=== PATIENT | male | born 1980 | race Caucasian/White ===

== ENCOUNTER → 2019-05-27 | Outpatient (CLI) | payer BC | END | disposition home or self-care (01) | LOC: RADMRIMAIN 12:45 | PROVIDERS: ATTEND Radiology Radiation Oncology | DX: Z53.9 Procedure and treatment not carried out, unspecified reason (principal) ==

== ENCOUNTER → 2019-05-27 | Outpatient (CLI) | payer BC ==
--- NOTE | 2019-05-27 13:30 | CT ---
EXAMINATION TYPE: CT brain wo con DATE OF EXAM: 05/27/2019 COMPARISON: Outside CT brain 05/08/2019, 04/21/2019 INDICATION: Follow up scan, prior surgery 1 month ago for tumor DLP: 1090.4 mGycm, Automated exposure control for dose reduction was used. CONTRAST: None CT of the brain is performed utilizing 3 mm thick sections through the posterior fossa and 3 mm thick sections through the remaining calvarium. Study is performed within 24 hours of arrival to the hosp [facility]. Graft findings: There is postsurgical change to the left frontal temporal region. There is ence phalomalacia and resection of the anterior left frontal lobe. Some encephalomalacia of the medial rig ht frontal lobe is present. No abnormal hyperdensity is present to suggest an acute intracranial hemorrhage. Previous hemorrhage in the frontal region is resolving. No recurrent or residual mass lesion is evident. No acute infarcts are evident. Ventricles and sulci are appropriate for the patient age. Because thickening is within the left frontal sinus and within scattered bilateral ethmoid air cells. Maxillary and sphenoid sinuses appear clear. Deviation is present. Mastoid air cells are clear. IMPRESSIONS: 1. Postsurgical resection of a left frontal lobe mass. Some residual white matter change within the medial right frontal lobe is evident. Prior hemorrhage is resolving. No recurrent or residual mass i s identified.
--- NOTE | 2019-05-27 18:23 | MR ---
EXAMINATION TYPE: MR brain wo/w con DATE OF EXAM: 05/27/2019 COMPARISON: CT brain 05/27/2029, MRI 04/24/2019 HISTORY: Brain tumor, glioblastoma left frontal lobe CONTRAST: Performed utilizing 7 mL intravenous Gadavist gadolinium contrast. TECHNIQUE: Multiplanar, multiecho imaging on a 3.0 Franci magnet is performed through the brain. Stud y is performed within 24 hours of arrival to the hospital. The craniovertebral junction is normal. The pituitary is normal. Diffusion-weighted imaging is performed. There is increased signal along the medial aspect of the le ft frontal region. This extends to the anterior corpus callosum. Posterior diffusion-weighted abnorma lities signal is present. More intermediate signal is through the corpus callosum on the right. On T2 and inversion recovery weighted sequences increased signal is through the corpus callosum best visualized in the inversion recovery weighted sequence. This appears heterogenous along the anterior corpus callosum. Some crossover from left to right is likely present into the posterior right frontal lobe. On postcontrast imaging extension of irregular enhancement from the frontal corpus callosum to nearly the posterior corpus callosum is evident. Series 703. Additionally, the peripheral ring enhancement from the patient's tumor in the posterior right frontal lobe is well demonstrated. Away from the tumor, the Ventricles and sulci are appropriate for the patient age. Additional suspicious areas of enhancement are not evident. There is some vasogenic edema in the supe rior left frontal lobe. Of the degree of effacement of the anterior horn left lateral ventricle appea rs diminished from the comparison. Midline shift is not evident at this time. IMPRESSIONS: 1. There is recurrent tumor at the resection margin which is invading the anterior corpus callosum, c rossing the midline and entering the right posterior frontal lobe. This area measures 3.8 x AP 3.0 cm transverse. This crosses the midline and has additional left posterior extension through the corpus callosum of approximately 4.2 cm. These findings appear new from the postsurgical comparison MRI April 24, 2019.
== END | disposition home or self-care (01) ==
LOC: RADCTMAIN 12:40
PROVIDERS: ATTEND Neurological Surgery
DX: R90.89 Other abnormal findings on diagnostic imaging of central nervous system (principal); Z98.890 Other specified postprocedural states
CPT/HCPCS: 70450; 70553; A9585

== ENCOUNTER → 2019-07-30 | Outpatient (CLI) | payer BC ==
--- NOTE | 2019-07-30 23:21 | MR ---
EXAMINATION TYPE: MR brain wo/w con DATE OF EXAM: 07/30/2019 COMPARISON: 05/27/2019 HISTORY: Follow up to tumor resection done April 2019 TECHNIQUE: Multiplanar, multisequence images of the brain and brainstem is performed without and with IV contras t, utilizing 7.5 mL intravenous Gadavist . FINDINGS: There is 4 x 4.5 cm area of encephalomalacia left frontal lobe. There is a 3 x 2.5 cm area of masslike density with some patchy nodular enhancement at the anterior aspect of the corpus callosu m in the midline. This is slightly more on the left side. There is slight effacement of the frontal h orn left lateral ventricle. Mass may be invading the ventricle. No other area of pathologic enhancement seen. IMPRESSION: Compared to previous exam there is decreased enhancement of the margins of the encephalom alacia left frontal lobe. There is midline mass at the anterior aspect of the corpus callosum at the interhemispheric fissure that shows slight decreased size and also decreased enhancement compared to old exam. There is also decrease in the enhancing area along the mid corpus callosum compared to old exam. I do not see evidence for progression of tumor compared to old exam.
== END | disposition home or self-care (01) ==
LOC: RADMRIMAIN 14:30
PROVIDERS: ATTEND Radiology Radiation Oncology
DX: G93.89 Other specified disorders of brain (principal)
CPT/HCPCS: 70553; A9585

== ENCOUNTER → 2019-09-24 | Outpatient (CLI) | payer BC ==
--- NOTE | 2019-09-24 16:28 | MR ---
EXAMINATION TYPE: MR brain wo/w con DATE OF EXAM: 09/24/2019 COMPARISON: 07/30/2019 HISTORY: Glioblastoma, F/U to tumor resection 04-23-19 CONTRAST: Performed utilizing 7.5 mL intravenous Gadavist gadolinium contrast. TECHNIQUE: Multiplanar, multiecho imaging on a 3.0 Franci magnet is performed through the brain. Stud y is performed within 24 hours of arrival to the hospital. The craniovertebral junction is normal. The pituitary is normal. Diffusion-weighted imaging is performed. There is increase of restricted flow on the diffusion-weigh jaki imaging along the anterior, medial, and posterior lateral borders the resection site. This extend s into the corpus callosum and some nodular appearance on the posterior periventricular region. There is some mild white matter change through the frontal regions bilaterally. These areas are hyperinten se on the inversion recovery weighted sequence. Following contrast enhancement is not readily apparen t. Remainder the brain is a normal appearance without discrete masses. Some mild periventricular white m atter changes present superiorly above the lateral ventricles. Ventricles and sulci away from the res ection site appear normal. Ventricles and sulci otherwise appear normal for the patient age. No suspicious enhancement away from the injection site is evident. IMPRESSIONS: 1. There is some stable diffusion signal in the bed of the resection site greatest at the level of th e corpus callosum on the left frontal region. Findings are stable from the comparison of 07/30/2019.
== END | disposition home or self-care (01) ==
LOC: RADMRIMAIN 14:12
PROVIDERS: ATTEND Internal Medicine Hematology & Oncology
DX: C71.9 Malignant neoplasm of brain, unspecified (principal)
CPT/HCPCS: 70553; A9585

== ENCOUNTER → 2019-11-15 | Outpatient (CLI) | payer BC ==
--- NOTE | 2019-11-15 13:15 | MR ---
EXAMINATION TYPE: MR brain wo/w con DATE OF EXAM: 11/15/2019 COMPARISON: 09/24/2019 and 05/27/2019 HISTORY: 39-year-old male Malignant neoplasm of frontal lobe, glioblastoma. TECHNIQUE: Multiplanar, multisequence images of the brain and brainstem were acquired before and aft er administration of 7.5 mL IV Gadavist. Diffusion weighted imaging is performed. FINDINGS: Redemonstrated 5.0 cm left frontal resection cavity with resection changes extending into the genu an d anterior body of the corpus callosum and also into the anterior right paramedian frontal lobe. There is persistent nodular restricted diffusion along the posterior and right posterolateral resecti on margin measuring 1.8 and 1.0 cm, respectively. This is decreased in size from 2.1 and 1.1 cm, prev iously. Some persistent irregular thickening along the right lateral half of the resection margin continues t o show corresponding restricted diffusion but no enhancement. Some stable minimal 6 mm nodular enhancement along the posterior aspect of the resection margin and s ome was the enhancement extending into the medial aspect of the right frontal lobe. Similar surrounding increased T2/FLAIR weighted signal within the anterior aspect of the left frontal lobe, extending across the midline into the medial aspect of the anterior right frontal lobe and adj acent to the body of the corpus callosum. Dominant right vertebral artery. No additional abnormal enhancing intracranial lesions are identified . The venous sinuses are patent. Persistent complete opacification left frontal sinus and moderate mucosal thickening ethmoid air cell s. Leftward nasal septal deviation. Additional small mucosal retention cyst within the floor of the l eft maxillary sinus. No hydrocephalus, midline shift, or extra-axial fluid collection. IMPRESSION: 1. Redemonstrated large, 5.0 cm, anterior left frontal lobe resection cavity extending to involve the genu and anterior body of the corpus callosum and also extending slightly into the medial aspect of the anterior right frontal lobe. 2. Two, nodular nonenhancing lesions posteriorly and right posterolaterally measuring 1.8 and 1.0 cm have decreased in size (2.1 and 1.1 cm, previously) and continue to show restricted diffusion, possib le surgical or hemorrhagic debris. 3. Similar irregular restricted diffusion along the right lateral half of the resection cavity but wi thout abnormal enhancement. 4. Stable 6 mm nodular enhancement along the posterior aspect of the resection margin and some stable wispy enhancement extending into the medial aspect of the right frontal lobe. 5. No new or progressive enhancement. Stable surrounding bright T2/FLAIR signal change.
== END | disposition home or self-care (01) ==
LOC: RADMRIMAIN 11:09
PROVIDERS: ATTEND Radiology Radiation Oncology
DX: G93.89 Other specified disorders of brain (principal); C71.1 Malignant neoplasm of frontal lobe; Z87.891 Personal history of nicotine dependence; Z98.890 Other specified postprocedural states
CPT/HCPCS: 70553; A9585

== ENCOUNTER → 2020-01-22 | Outpatient (CLI) | payer BC ==
--- NOTE | 2020-01-22 15:20 | MR ---
EXAMINATION TYPE: MR brain wo/w con DATE OF EXAM: 01/22/2020 COMPARISON: 11/15/2019, 11/15/2019, 09/24/2019, 05/27/2019, CT scan 05/27/2019 HISTORY: glioblastoma frontal lobe, f/u TECHNIQUE: Multiplanar, multisequence images of the brain and brainstem is performed without and with IV contras t, utilizing 7.5 mL intravenous Gadavist . FINDINGS: There is nonspecific white matter changes most likely on the basis of remote white matter ischemia or post therapeutic change. Findings are similar stable. Craniocervical junction maintained. Sella turcica has a normal appearance. Redemonstrated 5.0 cm left frontal resection cavity with resection changes extending into the genu and anterior body of the cor pus callosum and also into the anterior right paramedian frontal lobe. There is persistent nodular restricted diffusion along the posterior and right posterolateral resecti on margin measuring 1.8 and 1.0 cm, respectively. This is decreased in size from 2.1 and 1.1 cm, prev iously. There is stable minimal 6 mm nodular enhancement along the posterior aspect of the resection margin a nd some was the enhancement extending into the medial aspect of the right frontal lobe. Similar surro unding increased T2/FLAIR weighted signal within the anterior aspect of the left frontal lobe, extend ing across the midline into the medial aspect of the anterior right frontal lobe and adjacent to the body of the corpus callosum. Changes of chronic sinusitis noted. Nasal septal deviation noted. No midline shift. There also is sta ble asymmetric dural based enhancement along the left frontal and parietal lobes with a maximal thick ness along the frontal lobe measuring 6 mm stable from prior exam. This could be postsurgical. Stable dating back to multiple prior exams. IMPRESSION: 1. Stable large 5 cm anterior left frontal lobe resection cavity extending to the corpus callosum. 2. Nodular nonenhancing lesions posteriorly and posterior laterally measuring 1.8 and 1 cm are stable . They remain high in signal on diffusion suggestive of possible surgical or hemorrhagic debris. They demonstrate a stable amount of mass effect along the upper margin of the frontal horn on the left. 3. Stable abnormal diffusion signal along the right lateral half of the resection cavity unchanged fr om the prior exam without evidence of abnormal enhancement. 4. Stable 6 mm nodular enhancement along the posterior aspect of the resection margin. 5. Stable left frontal and parietal dural-based enhancement favored over extra-axial fluid collection with a maximal thickness of 6 mm unchanged from previous exam and reduced in thickness from the exam of 05/27/2019 weren't measured 7.1 mm.
== END | disposition home or self-care (01) ==
LOC: RADMRIMAIN 13:45
PROVIDERS: ATTEND Psychiatry & Neurology Neurology
DX: G93.89 Other specified disorders of brain (principal)
CPT/HCPCS: 70553; A9585

== ENCOUNTER → 2020-03-25 | Outpatient (CLI) | payer BC ==
--- NOTE | 2020-03-25 13:00 | MR ---
EXAMINATION TYPE: MR brain wo/w con DATE OF EXAM: 03/25/2020 COMPARISON: 01/22/2020 HISTORY: Glioblastoma, Follow up Study, Tumor removed in 2019 CONTRAST: Performed utilizing 7.5 mL intravenous Gadavist gadolinium contrast. TECHNIQUE: Multiplanar, multiecho imaging on a 3.0 Franci magnet is performed through the brain. Stud y is performed within 24 hours of arrival to the hospital. The craniovertebral junction is normal. The pituitary is normal. Diffusion-weighted imaging is performed. There is a tiny focus of enhancement along the posterior left frontal lobe resection margin. An addit ional focus is within the solid area extending into the anterior left lateral ventricle. Series 602 i mage 21. A small amount of enhancement appears to be within the residual anterior corpus callosum. Se angelo 602 images 19-20. These areas were present on the comparison study of 01/22/2020. No enlargement of the area of enhancement is evident. No increasing masslike areas evident at these levels. This cou ld be related to some postsurgical change. There is periventricular white matter changes. This is greater in the frontal lobes in greatest in th e superior left frontal lobe. White matter ischemic changes, radiation therapy changes are within the differential and appears stable over the interval. There is opacification of the frontal sinus on the left some scattered mucosal thickening within ethm oid air cells. Hyperintensity within the postsurgical margins in the soft tissue density extending into the left lat eral ventricle on diffusion-weighted imaging is stable from comparison. This currently is measured at 1.7 cm, prior measurement 1.8 cm. The more right medial diffusion signal measures 1.1 cm, prior briana urement 1.1 cm. No increasing abnormal signal is evident Remainder the brain appears unremarkable. Ventricles and sulci are appropriate for the patient age. IMPRESSIONS: 1. Stable appearance of the right peripheral frontal lobe resection. Diffusion increased signal and s mall areas of enhancement previously described are stable in appearance and size. No enlarging or new suspicious changes evident.
== END | disposition home or self-care (01) ==
LOC: RADMRIMAIN 11:15
PROVIDERS: ATTEND Internal Medicine Hematology & Oncology
DX: C71.9 Malignant neoplasm of brain, unspecified (principal)
CPT/HCPCS: 70553; A9585

== ENCOUNTER → 2020-06-26 | Outpatient (CLI) | payer BC ==
--- NOTE | 2020-06-27 04:16 | MR ---
EXAMINATION TYPE: MR brain wo/w con DATE OF EXAM: 06/26/2020 COMPARISON: 03/25/2020 HISTORY: F/U resection malignant neoplasm frontal lobe CONTRAST: Standard multiplanar, multisequence MRI departmental protocol utilizing 7 mL intravenous Gadavist sherita olinium contrast. There is left frontal craniotomy defect. There is 5.5 x 3.5 cm area of mixed signal in the left front al lobe related to encephalomalacia. There is some surrounding white matter edema. Encephalomalacia e xtends to the frontal horn left lateral ventricle. There is no mass effect. There is no midline shift . There is 1.6 cm irregular mass adjacent to the frontal horn of the left lateral ventricle which is nonenhancing. This area appears stable compared to the previous MR scan. This could BE area of residu al tumor. There is normal contrast opacification of the venous sinuses. There is mucosal thickening in the frontal and anterior ethmoid sinuses unchanged. IMPRESSION: Postsurgical changes with large area of encephalomalacia in the left frontal lobe lopez and white milly er adjacent to the midline. Nonenhancing irregular nodular area at the posterior aspect of the surger y site could be some residual tumor that appears stable compared to previous exam. No evidence of any tumor recurrence or new abnormality compared to old exam. Surgery site overall is fairly stable comp ared to older exam of 09/24/2019.
== END | disposition home or self-care (01) ==
LOC: RADMRIMAIN 17:44
PROVIDERS: ATTEND Radiology Radiation Oncology
DX: G93.89 Other specified disorders of brain (principal); Z98.890 Other specified postprocedural states; C71.1 Malignant neoplasm of frontal lobe; Z92.3 Personal history of irradiation; Z87.891 Personal history of nicotine dependence
CPT/HCPCS: 70553; A9585

== ENCOUNTER → 2020-09-29 | Outpatient (CLI) | payer BC ==
--- NOTE | 2020-09-29 09:47 | MR ---
EXAMINATION TYPE: MR brain wo/w con DATE OF EXAM: 09/29/2020 COMPARISON: 07/06/2020 HISTORY: Malignant neoplasm frontal lobe TECHNIQUE: Multiplanar, multisequence images of the brain and brainstem is performed without and with IV contras t, utilizing 7.5 mL intravenous Gadavist . FINDINGS: There is left frontal craniotomy defect. There is 5.5 x 3.5 cm area of signal in the left f rontal lobe related to encephalomalacia. There is some surrounding white matter edema. Encephalomalac ia extends to the frontal horn left lateral ventricle. There is no mass effect. There is no midline s hift. There is 1.6 cm irregular mass adjacent to the frontal horn of the left lateral ventricle which is nonenhancing. This is high and diffusion imaging and is similar to prior exams. Therefore, residu al neoplasm in the differential diagnosis. Ischemic change felt less likely given is been present sin ce 11/15/2000 correlate clinically This area appears stable compared to the previous MR scan. This coul d BE area of residual tumor. Midline structures demonstrate normal morphology. The craniocervical junction appears within normal limits. Post contrast images demonstrate no abnormal enhancement. The dural venous sinuses appear pa tent. Changes of chronic sinusitis noted. Globes are symmetric.. IMPRESSION: 1. Stable postsurgical changes with an area of suspected encephalomalacia change prior exam. Intermed iate signal along the anterior margin of the frontal horn on the left as previously noted stable with no enhancement. Due to the high signal in this region on diffusion imaging which is stable from mult iple prior exams residual neoplasm in the differential diagnosis. No new enhancing lesions. Findings are stable from prior exam.
== END | disposition home or self-care (01) ==
LOC: RADMRIMAIN 08:41
PROVIDERS: ATTEND Radiology Radiation Oncology
DX: R94.02 Abnormal brain scan (principal); C71.1 Malignant neoplasm of frontal lobe; Z98.890 Other specified postprocedural states; Z92.3 Personal history of irradiation; Z87.891 Personal history of nicotine dependence
CPT/HCPCS: 70553; A9585

== ENCOUNTER → 2020-12-23 | Outpatient (CLI) | payer BC ==
--- NOTE | 2020-12-23 17:08 | MR ---
EXAMINATION TYPE: MR brain wo/w con DATE OF EXAM: 12/23/2020 COMPARISON: 09/29/2020 and 06/26/2020 HISTORY: 40-year-old male with previous brain surgery, Hx glioblastoma TECHNIQUE: Multiplanar, multisequence images of the brain and brainstem were acquired before and aft er administration of 7.5 mL IV Gadavist. Diffusion weighted imaging is performed. FINDINGS: Redemonstrated resection cavity within the anterior left frontal lobe extending to involve the anteri or body of the corpus callosum. The cavity measures approximately 4.9 x 3.8 cm (versus 4.8 x 3.7 cm, previously) and is not significantly changed. Minimal thickened enhancement along the anterior and me dial resection margin shows no change. Redemonstrated nodular bright T2 and intermediate T1 signal material showing restricted diffusion at the posterior margin of the resection cavity contiguous with the frontal horn of the left lateral moo tricle measuring 1.6 x 1.4 cm (versus 1.8 x 1.5 cm, previously). Unchanged small 4 mm enhancing focus in this region. Smaller similar area within the frontal horn of the right lateral ventricle measures 8 mm versus 1 cm , previously. Tiny 3 mm enhancing nodular focus here is also unchanged. Suspect that the enhancing ar eas represent blood vessels. Prominent surrounding bright T2 signal white matter change throughout the left greater than right bif rontal lobes and to a lesser extent within the periventricular regions remains unchanged. No new enhancing lesions are identified. Dural venous sinuses are patent. No midline shift, hydrocephalus, or extra-axial fluid collection. No effacement of cerebral sulci or basal subarachnoid cisterns. Midline structures demonstrate normal morphology. The craniocervical junction is normal. Continued moderate to severe mucosal thickening throughout the ethmoid air cells and severe within th e left frontal and right sphenoid sinuses. Mastoid air cells well pneumatized. Globes appear intact. IMPRESSION: 1. Essentially stable 4.9 cm anterior left frontal lobe resection cavity with minimal thickened enhan cement along the anterior and medial margin. The surrounding bright T2 white matter change in the lef t greater than right frontal lobes is also stable. 2. 1.6 cm nodularity at the posterior margin of the resection cavity continues to show restricted dif fusion and is slightly smaller from 1.8 cm, previously. Given the lack of enhancement and decreasing size, consider hemorrhagic debris. Similar but smaller 8 mm area within the anterior right frontal ho rn has also decreased slightly, previously having measured 1 cm. Tiny foci of enhancement within thes e structures are also stable and likely represent small blood vessels. 3. No new enhancing lesions. 4. Continued moderate to severe ethmoid, left frontal, and right sphenoid sinus disease.
== END | disposition home or self-care (01) ==
LOC: RADMRIMAIN 10:33
PROVIDERS: ATTEND Internal Medicine Hematology & Oncology
DX: G93.89 Other specified disorders of brain (principal); R90.89 Other abnormal findings on diagnostic imaging of central nervous system; R90.82 White matter disease, unspecified; C71.9 Malignant neoplasm of brain, unspecified
CPT/HCPCS: 70553; A9585

== ENCOUNTER → 2021-02-18 | Outpatient (CLI) | payer BC ==
--- NOTE | 2021-02-18 14:04 | EEG ---
ELECTROENCEPHALOGRAM REPORT DATE OF SERVICE: 02/18/2021 PREAMBLE: This is a 41-year-old male with history of malignant neoplasm of the brain in 2019. He underwent removal followed by chemo and radiation. He has been having daily headaches. Patient had a seizure like activity. This study is performed to evaluate for any epileptiform activity. Patient is alert and oriented x4. EEG FINDINGS: This is a 21 channel routine EEG recording on patient utilizing 10/20 international system with referential and bipolar montages. Background consists of well developed, well regulated, moderate voltage activity in 9-10 hertz alpha, seen better in the right hemispheric region, posterior dominant. There is amplitude asymmetry, with relatively higher amplitude activity involving the left frontal parietal region, consistent with a breach rhythm due to craniotomy defect. Photic driving response was seen with some flash frequencies. Different stages of sleep were not seen. No focal or generalized epileptiform activity was seen. IMPRESSION: This is a mildly abnormal EEG due to presence of amplitude asymmetry with relatively higher amplitude activity over the left frontal parietal region, consistent with breach rhythm due to craniotomy defect. Otherwise, the EEG was normal with no epileptiform activity. MMODL / IJN: [id number] / MTDD
== END ==
LOC: NEUROMAIN 08:00
PROVIDERS: ATTEND Internal Medicine Hematology & Oncology
DX: Z03.89 Encounter for observation for other suspected diseases and conditions ruled out (principal); C71.9 Malignant neoplasm of brain, unspecified
CPT/HCPCS: 95816

== ENCOUNTER → 2021-04-19 | Outpatient (CLI) | payer BC ==
--- NOTE | 2021-04-19 12:29 | MR ---
EXAMINATION TYPE: MR brain wo/w con DATE OF EXAM: 04/19/2021 COMPARISON: 12/23/2020 HISTORY: F/U post treatment for malignant neoplasm TECHNIQUE: Multiplanar, multisequence images of the brain and brainstem is performed without and with IV contras t, utilizing 7 mL intravenous Gadavist . FINDINGS: Redemonstrated resection cavity within the anterior left frontal lobe extending to involve the anterior body of the corpus callosum. The cavity measures approximately 4.9 x 3.8 cm (versus 4.9 x 3.8 cm, previously) and is not significantly changed. Minimal thickened enhancement along the anter ior and medial resection margin shows no change. Redemonstrated nodular bright T2 and intermediate T1 signal material showing restricted diffusion at the posterior margin of the resection cavity contiguous with the frontal horn of the left lateral moo tricle measuring 1.6 x 1.4 cm in stable). Unchanged small 4 mm enhancing focus in this region. Prominent surrounding bright T2 signal white matter change throughout the left greater than right bif rontal lobes and to a lesser extent within the periventricular regions remains unchanged. No new enhancing lesions are identified. Dural venous sinuses are patent. No midline shift, hydroceph alus, or extra-axial fluid collection. No effacement of cerebral sulci or basal subarachnoid cisterns . Midline structures demonstrate normal morphology. The craniocervical junction is normal. Continued moderate to severe mucosal thickening throughout the ethmoid air cells and severe within the left fro ntal and right sphenoid sinuses. Mastoid air cells well pneumatized. Globes appear intact. IMPRESSION: 1. Stable anterior left frontal resection cavity with minimal enhancement unchanged from prior exam. 2. Previously noted nodular areas of enhancement are stable. 3. No new areas of enhancement.
== END | disposition home or self-care (01) ==
LOC: RADMRIMAIN 10:30
PROVIDERS: ATTEND Radiology Radiation Oncology
DX: Z08 Encounter for follow-up examination after completed treatment for malignant neoplasm (principal); C71.1 Malignant neoplasm of frontal lobe; Z85.841 Personal history of malignant neoplasm of brain; Z87.891 Personal history of nicotine dependence; Z92.3 Personal history of irradiation
CPT/HCPCS: 70553; A9585

== ENCOUNTER → 2021-08-11 | Outpatient (CLI) | payer BC ==
--- NOTE | 2021-08-11 13:25 | MR ---
EXAMINATION TYPE: MR brain wo/w con DATE OF EXAM: 08/11/2021 COMPARISON: HISTORY: Malignant neoplasm of brain, post radiation TECHNIQUE: Multiplanar, multisequence images of the brain and brainstem is performed without and with IV contras t, utilizing 8 mL intravenous Gadavist . FINDINGS: Exam is stable. Postoperative changes, posttreatment changes, encephalomalacia and gliosis, areas of restricted diffusion and nodular enhancement showed similar appearance. Midline structures demonstrate stable morphology. The craniocervical junction appears within normal limits. Sinus disease is present in the frontal sinuses, ethmoid air cells, sphenoid sinus. IMPRESSION: There is no significant interval change. Stable findings.
== END | disposition home or self-care (01) ==
LOC: RADMRIMAIN 09:41
PROVIDERS: ATTEND Radiology Radiation Oncology
DX: Z08 Encounter for follow-up examination after completed treatment for malignant neoplasm (principal)
CPT/HCPCS: 70553; A9585

== ENCOUNTER → 2022-02-03 | Outpatient (CLI) | payer BC ==
--- NOTE | 2022-02-04 05:40 | MR ---
EXAMINATION TYPE: MR brain wo/w con DATE OF EXAM: 02/03/2022 COMPARISON: 08/11/2021 HISTORY: malignant neoplasm frontal lobe CONTRAST: Standard multiplanar, multisequence MRI departmental protocol images were obtained without contrast a nd with 9 mL intravenous Gadavist gadolinium contrast. There is rounded 5.3 x 3.8 cm area of fluid signal in the left frontal lobe involving lopez and white matter and consistent with encephalomalacia. The diffusion images show some small areas of increased signal in the white matter adjacent to the frontal horn of the left and right lateral ventricle. This is more on the left side. This is also present on previous exam and not changed. Contrast images karin w no definite pathologic enhancement. There is some enhancement of the anterior cerebral falx in a li near distribution and stable compared to old exam. There is thinning of the anterior and midcorpus ca llosum. Sella turcica is intact. Brainstem is intact. There is no evidence of orbital mass. Skull bas e appears intact. IMPRESSION: Large area of encephalomalacia in the left frontal lobe appears stable compared to old exam and consi stent with postsurgical changes. No sign of recurrent tumor.
== END | disposition home or self-care (01) ==
LOC: RADMRIMAIN 10:25
PROVIDERS: ATTEND Radiology Radiation Oncology
DX: Z08 Encounter for follow-up examination after completed treatment for malignant neoplasm (principal); Z85.841 Personal history of malignant neoplasm of brain; Z92.3 Personal history of irradiation; Z98.890 Other specified postprocedural states; Z87.891 Personal history of nicotine dependence
CPT/HCPCS: 70553; A9585

== ENCOUNTER → 2022-08-17 | Outpatient (CLI) | payer BC ==
--- NOTE | 2022-08-17 14:39 | MR ---
EXAMINATION TYPE: MR brain wo/w con DATE OF EXAM: 08/17/2022 COMPARISON: Multiple priors most recent 02/03/2022. HISTORY: MALIGNANT NEOPLASM OF FRONTAL LOBE TECHNIQUE: Multiplanar, multisequence images of the brain and brainstem is performed without and with IV contras t, utilizing 9 mL intravenous Gadavist . FINDINGS: Redemonstration of left frontal lobe encephalomalacia from prior intervention. There is ext ensive frontal lobe white matter changes as seen on prior imaging. There is similar curvilinear area adjacent to the left lateral ventricle and more medial right lateral ventricle of restricted diffusio n which is similar to prior. Postcontrast imaging does not demonstrate evidence of recurrence. Diffus ion weighted images demonstrate no evidence new of a recent infarct or other diffusion abnormality. M ild ventricular system dilation similar prior. Brain volume is stable. Midline structures demonstrate normal morphology. The craniocervical junction appears within normal limits. Post contrast images demonstrate no abnormal enhancement. The dural venous sinuses appear patent. The visualized sinuses a re clear and the globes are intact. IMPRESSION: Stable exam without evidence for recurrence. 1. Similar encephalomalacia.
== END | disposition home or self-care (01) ==
LOC: RADMRIMAIN 11:00
PROVIDERS: ATTEND Radiology Radiation Oncology
DX: G93.89 Other specified disorders of brain (principal)
CPT/HCPCS: 70553; A9585

== ENCOUNTER → 2023-02-15 | Outpatient (CLI) | payer BC ==
--- NOTE | 2023-02-16 06:08 | MR ---
EXAMINATION TYPE: MR brain wo/w con DATE OF EXAM: 02/15/2023 COMPARISON: Primary MRI brain August 17, 2022 HISTORY: 6 MO CHECK-UP ON BRAIN CA TECHNIQUE: Multiplanar, multisequence images of the brain and brainstem is performed without and with IV contras t, utilizing 8 mL intravenous Gadavist . FINDINGS: Diffusion weighted images demonstrate no evidence of a recent infarct or other diffusion ab normality. The ventricular system and cisternal spaces remain normal in size and appearance. The br ain volume is age appropriate. Persistent left sided craniotomy changes with left frontal resection c avity measuring approximately 4.4 x 4.0 cm axial image 109 having surrounding T2 hyperintensity inclu ding involvement in the right frontal lobe. There is some curvilinear anterior dural enhancement rede monstrated. There is no new suspicious increasing nodular enhancement to suggest local neoplastic rec urrence. No new enhancing masses are present. Midline structures redemonstrate normal morphology. The craniocervical junction remains within sujatha l limits. Post contrast images demonstrate no abnormal enhancement. The dural venous sinuses appear patent. Moderate mucosal thickening involving the ethmoid sinuses bilaterally is redemonstrated. Mild mucosal thickening involving maxillary sinuses left greater than right is now present. Globes are in tact bilaterally. Nasal septum remains deviated. IMPRESSION: 1. Posttreatment changes to left frontal region redemonstrated. No significant change from most recen t MRI to suggest local neoplastic recurrence.
== END | disposition home or self-care (01) ==
LOC: RADMRIMAIN 11:26
PROVIDERS: ATTEND Radiology Radiation Oncology
DX: Z08 Encounter for follow-up examination after completed treatment for malignant neoplasm (principal); Z98.890 Other specified postprocedural states; Z85.841 Personal history of malignant neoplasm of brain; Z92.3 Personal history of irradiation; Z87.891 Personal history of nicotine dependence
CPT/HCPCS: 70553; A9585

== ENCOUNTER → 2023-08-02 | Outpatient (CLI) | payer BC ==
--- NOTE | 2023-08-03 18:12 | MR ---
EXAMINATION TYPE: MR brain wo/w con DATE OF EXAM: 08/02/2023 COMPARISON: 02/15/2023 HISTORY: Malignant neoplasm. F/U comparison to prior MRI 02-15-23. CONTRAST: Performed utilizing 7.5 mL intravenous Gadavist gadolinium contrast. TECHNIQUE: Multiplanar, multiecho imaging on a 3.0 Franci magnet is performed through the brain. Stud y is performed within 24 hours of arrival to the hospital. The craniovertebral junction is normal. The pituitary is normal. There is a left frontal lobe resection. This extends towards the anterior horn left lateral ventricle . Appearance is stable from comparison. Diffusion-weighted imaging is performed. No abnormal hyperintensity is present to suggest an acute i ntracranial infarct or acute ischemic change. There is hyperintensity in the periventricular white matter more extensive into the frontal lobes [place] aterally. This is adjacent to the surgical resection site. Following contrast imaging is reviewed. There is a small focus of enhancement along the lateral borde r of the mid left frontal lobe resection. Image 701 image 97. This area measures 0.4 cm. This area a ppears new. An additional new focus of enhancement measuring 0.6 cm is in the superior surgical yunier n, series 701, image 132. The resection region of the left frontal lobe currently is estimated to measure 4.4 x 3.8 cm, this is compared to 4.4 x 4.0 cm on the prior examination similar level. Ventricles and sulci are appropriate for the patient age. Erect mucosal thickening within the left maxillary sinus. Small air-fluid level may be present. There is opacification throughout the ethmoid air cells bilaterally. Left frontal sinus opacification is p resent. Sphenoid sinuses frontal sinus on the right mastoid air cells are clear. IMPRESSION: 1. 2 small new areas of enhancement at the resection margins including a 0.4 cm area lateral mid fron radha resection border and 0.6 cm superior left frontal resection border. Recurrence should be consider ed. 2. White matter changes in the left and right frontal lobes appears stable over the interval
== END | disposition home or self-care (01) ==
LOC: RADMRIMAIN 13:13
PROVIDERS: ATTEND Radiology Radiation Oncology
DX: Z08 Encounter for follow-up examination after completed treatment for malignant neoplasm (principal); C71.1 Malignant neoplasm of frontal lobe; R90.82 White matter disease, unspecified; Z98.890 Other specified postprocedural states; Z85.841 Personal history of malignant neoplasm of brain; Z92.3 Personal history of irradiation; Z87.891 Personal history of nicotine dependence
CPT/HCPCS: 70553; A9585

== ENCOUNTER → 2023-11-24 | Outpatient (CLI) | payer OTHER ==
--- NOTE | 2023-11-26 21:49 | MR ---
EXAMINATION TYPE: MR brain wo/w con DATE OF EXAM: 11/24/2023 COMPARISON: 08/02/2023 and 02/15/2023 HISTORY: 43-year-old male C71.7,Z98.890, Z92.3,Z87.891, F/U Malignant neoplasm, surgical removal on 2022. TECHNIQUE: Multiplanar, multisequence images of the brain and brainstem were acquired before and aft er administration of 7.5 mL IV Gadavist. Diffusion weighted imaging is performed. FINDINGS: Redemonstrated resection cavity anterior left frontal lobe with surrounding right T2 white matter cameron nge in the bifrontal lobes. Overall size and appearance of the resection cavity is similar. The nodul ar area of enhancement along the superior margin of the resection cavity is not as well demonstrated but stable to minimally larger in size at 8 mm versus 6 mm, previously. Second area of irregular enhancement along the inferior margin of the resection cavity is larger at 1 .6 cm versus 6 mm, previously. Irregular material along the posterior margin of the resection cavity measures 1.1 cm and 0.9 cm, inc reased from prior. These areas show restricted diffusion but no corresponding enhancement, suspect he morrhagic debris. No additional abnormal areas of enhancement are seen. No hydrocephalus or midline shift. No effacement of cerebral sulci or basal subarachnoid cisterns. No extra-axial fluid collection. No evidence for acute infarct. Midline structures and craniocervical junction appear within normal limits. Dural venous sinuses are patent. Severe opacification bilateral ethmoid air cells and left frontal sinus. Leftward nasal septal deviat ion. Globes are intact. IMPRESSION: 1. Redemonstrated resection cavity left frontal lobe. Small nodular area of enhancement along the sup erior margin of the resection cavity is minimally larger at 8 mm versus 6 mm, previously. Second area of irregular enhancement along the inferior margin of the resection cavity is larger at 1.6 cm versu s 6 numbness, previously. 2. Surrounding bifrontal white matter change could represent gliosis/posttreatment change and is chente lar. 3. No other new areas of enhancement are identified. 4. Severe chronic ethmoid and left frontal sinus disease.
== END | disposition home or self-care (01) ==
LOC: RADMRIMAIN 09:37
PROVIDERS: ATTEND Radiology Radiation Oncology
DX: G93.89 Other specified disorders of brain (principal); J34.89 Other specified disorders of nose and nasal sinuses; C71.1 Malignant neoplasm of frontal lobe; Z87.891 Personal history of nicotine dependence; Z98.890 Other specified postprocedural states
CPT/HCPCS: 70553

== ENCOUNTER → 2024-03-11 | Outpatient (CLI) | payer OTHER ==
--- NOTE | 2024-03-12 08:53 | MR ---
EXAMINATION TYPE: MR brain wo/w con DATE OF EXAM: 03/11/2024 11:28 PM CLINICAL INDICATION:Male, 44 years old with history of C71.9 MALIGNANT NEOPLASM OF BRAIN, UNSPECIFIED ; COMPARISON: 11/24/2023 TECHNIQUE: Multi planar, multi sequence imaging was performed through the brain including: T1, T2, In version recovery, susceptibility weighted imaging and gradient echo imaging and Diffusion weighted im aging. The patient was then given intravenous contrast and multi planar, T1 fat-saturation images wer e obtained. IV Contrast: cc 7.5 Gadavist FINDINGS: Interval increase in enhancing soft tissue in the surgical bed now measuring 36 x 27 x 18 mm, previou sly 16 x 10 x 9 mm. Area of enhancement more superiorly on prior on 08/02/2023 2 prior on 11/24/2023 is not visualized. There is extensive white matter vasogenic edema within the frontal lobes. Surgical c hanges also noted in the left frontal lobe. The lopez-white junctions, ventricular system, basal cisterns appear unremarkable. Diffusion-weighted imaging shows no evidence of restricted diffusion to suggest acute/subacute infarct. Intracranial ar terial flow voids are maintained. Midline structures show no abnormality. The susceptibility blooming artifact within the surgical bed compatible with hemosiderin deposition. The bone marrow signal is within normal limits. Paranasal sinuses and mastoid air cells: Chronic paranasal sinus disease is again redemonstrated. Visualized orbits: Orbital contents are intact. IMPRESSION: Interval increase in enhancing soft tissue in the surgical bed now measuring 36 x 27 x 18 mm, previou sly 16 x 10 x 9 mm findings compatible with worsening recurrence. Smaller area of enhancement along t he superior margin of the resection cavity is not well appreciated.
== END | disposition home or self-care (01) ==
LOC: RADMRIMAIN 20:30
PROVIDERS: ATTEND Internal Medicine Hematology & Oncology
DX: C71.9 Malignant neoplasm of brain, unspecified (principal); Z98.890 Other specified postprocedural states
CPT/HCPCS: 70553; A9585

== ENCOUNTER 2024-04-28 10:36 | Emergency (ER) | payer OTHER ==
[2024-04-28 11:00] VITALS: BP 133/86; PULSE 76; RESP 20; TEMP 98.1
[2024-04-28 11:57] LABS: Basophils % (A) 0 %; Eosinophils # (A) 0.1 k/uL (0-0.7); Eosinophils % (A) 1 %; HCT 48.6 % (39.0-53.0); HGB 16.8 gm/dL (13.0-17.5); Lymphocytes # (A) 1.3 k/uL (1.0-4.8); Lymphocytes % (A) 13 %; MCH 30.6 pg (25.0-35.0); MCHC 34.6 g/dL (31.0-37.0); MCV 88.5 fL (80.0-100.0); Mean Platelet Volume 6.8; Monocytes # (A) 0.7 k/uL (0-1.0); Monocytes % (A) 7 %; Neutrophils # (A) 7.9 k/uL (1.3-7.7); Neutrophils % (A) 77 %; Platelet Count 242 k/uL (150-450); RBC 5.49 m/uL (4.30-5.90); RDW 13.3 % (11.5-15.5); WBC 10.3 k/uL (3.8-10.6)
[2024-04-28 12:10] LABS: ALT 23 U/L (4-49); AST 22 U/L (17-59); African American GFR (CKD) >90 (>60 ml/min/1.73 sqM); Albumin 4.6 g/dL (3.5-5.0); Alkaline Phosphatase 101 U/L (38-126); Anion Gap 5 mmol/L; Blood Urea Nitrogen 17 mg/dL (9-20); Calcium 9.8 mg/dL (8.4-10.2); Carbon Dioxide 24 mmol/L (22-30); Chloride 109 mmol/L (98-107); Glucose 95 mg/dL (74-99); Magnesium 2.1 mg/dL (1.6-2.3); Non-African American GFR(CKD) >90 (>60 ml/min/1.73 sqM); Potassium 4.4 mmol/L (3.5-5.1); Sodium 138 mmol/L (137-145); Total Bilirubin 0.8 mg/dL (0.2-1.3); Total Protein 6.9 g/dL (6.3-8.2)
--- NOTE | 2024-04-28 12:32 | ED ---
General Adult HPI - General Chief complaint: Seizure Stated complaint: Seizure Time Seen by Provider: 04/28/24 11:00 Source: patient, RN notes reviewed, old records reviewed Mode of arrival: ambulatory Limitations: no limitations - History of Present Illness Initial comments: This is a 44-year-old male with a past medical history significant for gliobla stoma. Patient had surgery 5 years ago. Patient had a seizure 2 weeks ago and another 1 this morning. His ex- was with him and stated that his seizure today lasted 30 seconds. Patient is already informing he is not going to stay overnight. Patient states he may have tried some seizure medications in the past but he does not want to take any seizure medications currently. Patient denies any fever or chills. Patient has any trauma. According to the ex- patient had an MRI that showed recurrence of the glioblastoma. Patient's post have appointment tomorrow with Dr. Cardozo. Patient was post to take prednisone but he has not taken it he does not want to take any medicines. Patient denies any headache. Patient currently has no symptoms - Related Data Allergies Allergy/AdvReac Type Severity Reaction Status Date / Time Penicillins Allergy Rash/Hives Verified 04/28/24 11:00 Review of Systems ROS Statement: Those systems with pertinent positive or pertinent negative responses have been documented in the HPI. ROS Other: All systems not noted in ROS Statement are negative. Past Medical History Past Medical History: Seizure Disorder History of Any Multi-Drug Resistant Organisms: None Reported Past Surgical History: No Surgical Hx Reported Past Psychological History: No Psychological Hx Reported Smoking Status: Current every day smoker Past Alcohol Use History: Daily, Heavy Past Drug Use History: Marijuana General Exam - General Exam Comments Initial Comments: GENERAL: Patient is well-developed and well-nourished. Patient is nontoxic and well- hydrated and is in no acute distress. ENT: Neck is soft and supple. No significant lymphadenopathy is noted. Oropharynx is clear. Moist mucous membranes. Neck has full range of motion without eliciting any pain. EYES: The sclera were anicteric and conjunctiva were pink and moist. Extraocular movements were intact and pupils were equal round and reactive to light. Eyelids were unremarkable. PULMONARY: Unlabored respirations. Good breath sounds bilaterally. No audible rales rhonchi or wheezing was noted. CARDIOVASCULAR: There is a regular rate and rhythm without any murmurs gallops or rubs. ABDOMEN: Soft and nontender with normal bowel sounds. No palpable organomegaly was noted. There is no palpable pulsatile mass. SKIN: Skin is clear with no lesions or rashes and otherwise unremarkable. NEUROLOGIC: Patient is alert and oriented x3. Cranial nerves II through XII are grossly intact. Motor and sensory are also intact. Normal speech, volume and content. Symmetrical smile. MUSCULOSKELETAL: Normal extremities with adequate strength and full range of motion. LYMPHATICS: No significant lymphadenopathy is noted PSYCHIATRIC: Normal psychiatric evaluation. Limitations: no limitations Course Vital Signs 04/28/24 10:57 Temperature 98.1 F Pulse Rate 76 Respiratory 20 Rate Blood Pressure 133/86 O2 Sat by Pulse 97 Oximetry Medical Decision Making - Medical Decision Making EKG is interpreted by myself but EKG shows a sinus rhythm at 62 bpm IN interval is 175 QRS 94 QT interval 360 QTc is 365. Patient's EKG shows no ST segment ovation or depression. Was pt. sent in by a medical professional or institution (, PA, DERMATOLOGY PHYSICIAN ASSISTANT, urgent care, hospital, or [facility]...) When possible be specific @ -No Did you speak to anyone other than the patient for history (EMS, parent, family, police, friend...)? What history was obtained from this source @ -Patient's ex- gave quite a bit history because he had a seizure and did not remember that period of time. Did you review nursing and triage notes (agree or disagree)? Why? @ -I reviewed and agree with nursing and triage notes Were old charts reviewed (outside hosp., previous admission, EMS record, old EKG, old radiological studies, urgent care reports/EKG's, [facility] records)? Report findings @ -I compared today's CAT scan with the prior MRI and today's CAT scan showed a frontal lobe bleed Differential Diagnosis (chest pain, altered mental status, abdominal pain women, abdominal pain men, vaginal bleeding, weakness, fever, dyspnea, syncope, headache, dizziness, GI bleed, back pain, seizure, CVA, palpatations, mental health, musculoskeletal)? @ -Differential Seizure: Recurrent seizure disorder, febrile seizure, alcohol withdrawal, stimulants, meningitis, encephalitis, intercranial hemorrhage, intracranial tumor, stroke, eclampsia, thyrotoxicosis, hypocalcemia, hyponatremia, hypernatremia, hypoma gnesemia, psychogenic, this is not meant to be an all-inclusive list. EKG interpreted by me (3pts min.). @ -As above X-rays interpreted by me (1pt min.). @ -None done CT interpreted by me (1pt min.). @ -CT scan of the brain shows a frontal lobe bleed on the left U/S interpreted by me (1pt. min.). @ -None done What testing was considered but not performed or refused? (CT, X-rays, U/S, labs)? Why? @ -None What meds were considered but not given or refused? Why? @ -None Did you discuss the management of the patient with other professionals (professionals i.e. , PA, DERMATOLOGY PHYSICIAN ASSISTANT, lab, RT, psych nurse, social scientist, machinery cleaner, teacher, quarantine officer, foster care case manager)? Give summary @ -I spoke with radiology about the frontal lobe bleed and had him compare with the MRI as well. Was smoking cessation discussed for >3mins.? @ -No Was critical care preformed (if so, how long)? @ -No Were there social determinants of health that impacted care today? How? (Homelessness, low income, unemployed, alcoholism, drug addiction, transportation, low edu. Level, literacy, decrease access to med. care, longterm, rehab)? @ -No Was there de-escalation of care discussed even if they declined (Discuss DNR or withdrawal of care, Hospice)? DNR status @ -No What co-morbidities impacted this encounter? (DM, HTN, Smoking, COPD, CAD, Cancer, CVA, ARF, Chemo, Hep., AIDS, mental health diagnosis, sleep apnea, morbid obesity)? @ -None Was patient admitted / discharged? Hospital course, mention meds given and route, prescriptions, significant lab abnormalities, going to OR and other pertinent info. @ -I spoke with the patient about being transferred he refused to be transferred he refused to be hospitalized and he states he does not want to take any medications including his steroid. Patient states he will follow-up with Dr. Cardozo tomorrow at a previous scheduled appointment. I talked to him at least 3 times about this with the ex- present and he absolutely refused to stay. Patient will sign out AMA Undiagnosed new problem with uncertain prognosis? @ -No Drug Therapy requiring intensive monitoring for toxicity (Heparin, Nitro, Insulin, Cardizem)? @ -No Were any procedures done? @ -No Diagnosis/symptom? @ -Intracranial hemorrhage Acute, or Chronic, or Acute on Chronic? @ -Acute Uncomplicated (without systemic symptoms) or Complicated (systemic symptoms)? @ -complicated Side effects of treatment? @ -No Exacerbation, Progression, or Severe Exacerbation? @ -No Poses a threat to life or bodily function? How? (Chest pain, [place], ME, pneumonia, PE, COPD, DKA, ARF, appy, cholecystitis, CVA, Diverticulitis, Homicidal, Suicidal, threat to staff... and all critical care pts) @ -Yes the bleed could expand and cause morbidity or mortality - Lab Data Result diagrams: 04/28/24 11:43 04/28/24 11:43 Lab Results 04/28/24 04/28/24 Range/Units 11:43 11:43 WBC 10.3 (3.8-10.6) k/uL RBC 5.49 (4.30-5.90) m/uL Hgb 16.8 (13.0-17.5) gm/dL Hct 48.6 (39.0-53.0) % MCV 88.5 (80.0-100.0) fL MCH 30.6 (25.0-35.0) pg MCHC 34.6 (31.0-37.0) g/dL RDW 13.3 (11.5-15.5) % Plt Count 242 (150-450) k/uL MPV 6.8 Neutrophils % 77 % Lymphocytes % 13 % Monocytes % 7 % Eosinophils % 1 % Basophils % 0 % Neutrophils # 7.9 H (1.3-7.7) k/uL Lymphocytes # 1.3 (1.0-4.8) k/uL Monocytes # 0.7 (0-1.0) k/uL Eosinophils # 0.1 (0-0.7) k/uL Basophils # 0.0 (0-0.2) k/uL Sodium 138 (137-145) mmol/L Potassium 4.4 (3.5-5.1) mmol/L Chloride 109 H (98-107) mmol/L Carbon Dioxide 24 (22-30) mmol/L Anion Gap 5 mmol/L BUN 17 (9-20) mg/dL Creatinine 0.87 (0.66-1.25) mg/dL Est GFR (CKD-EPI)AfAm >90 (>60 ml/min/1.73 sqM) Est GFR (CKD-EPI)NonAf >90 (>60 ml/min/1.73 sqM) Glucose 95 (74-99) mg/dL Calcium 9.8 (8.4-10.2) mg/dL Magnesium 2.1 (1.6-2.3) mg/dL Total Bilirubin 0.8 (0.2-1.3) mg/dL AST 22 (17-59) U/L ALT 23 (4-49) U/L Alkaline Phosphatase 101 (38-126) U/L Total Protein 6.9 (6.3-8.2) g/dL Albumin 4.6 (3.5-5.0) g/dL Disposition Clinical Impression: Intracranial hemorrhage Disposition: LEFT AGAINST MEDICAL ADVICE Referrals: Rahul Cardozo MD [Primary Care Provider] - 1-2 days Time of Disposition: 13:56
--- NOTE | 2024-04-28 12:43 | CT ---
EXAMINATION TYPE: CT brain wo con CT DLP: 1101.4 mGycm, Automated exposure control for dose reduction was used. DATE OF EXAM: 04/28/2024 12:19 PM COMPARISON: 03/11/2024, 05/27/2019. CLINICAL INDICATION:Male, 44 years old with history of Seizure, Seizure with hx of them. hx of brain ca TECHNIQUE: Brain: Axial CT images of the brain were obtained with coronal and sagittal reformats created and rev iewed. Contrast used: None. Oral contrast used: None. FINDINGS: Brain: Extra-axial spaces: No abnormal extra-axial fluid collections. Ventricular system: Within normal limits Cerebral parenchyma: Posttreatment changes left frontal lobe with craniotomy. There is vasogenic shari a not on similar to prior MRI given differences in modality. There is hyperdensity within the area of enhancement seen on 03/11/2024 MRI series 201 image 33.The remainder of the lopez-white junctions are well differentiated. Cerebellum: Unremarkable. Mass effect: No evidence of midline shift. Intracranial vasculature: unremarkable Soft tissues: Normal. Calvarium/osseous structures: No depressed skull fracture. Paranasal sinuses and mastoid air cells: Mild scattered paranasal sinus disease. Visualized orbits: Orbital contents are intact. IMPRESSION: Left frontal lobe mass with possible hemorrhage versus calcification. No recent CTs available for [facility]. Consider follow-up MRI brain with IV contrast for comparison with 03/11/2024.
--- NOTE | 2024-04-28 12:44 | XR ---
EXAMINATION TYPE: XR chest 2V DATE OF EXAM: 04/28/2024 12:21 PM CLINICAL INDICATION:Male, 44 years old with history of Difficulty breathing ; [facility] COMPARISON: None TECHNIQUE: XR chest 2V Frontal and lateral views of the chest. FINDINGS: Lungs/Pleura: There is no evidence of pleural effusion, focal consolidation, or pneumothorax. Pulmonary vascularity: Unremarkable. Heart/mediastinum: Cardiomediastinal silhouette is unremarkable. Musculoskeletal: No acute osseous pathology. Other findings: None IMPRESSION: No acute cardiopulmonary disease/process.
== END 2024-04-28 14:24 | disposition left against medical advice (07) ==
LOC: EC 10:36
DX: I62.9 Nontraumatic intracranial hemorrhage, unspecified (principal); F17.200 Nicotine dependence, unspecified, uncomplicated; F12.90 Cannabis use, unspecified, uncomplicated; Z53.29 Procedure and treatment not carried out because of patient's decision for other reasons
CPT/HCPCS: 36415; 70450; 71046; 80053; 83735; 85025; 93005; 99285

== ENCOUNTER → 2024-08-07 | Outpatient (CLI) | payer OTHER ==
--- NOTE | 2024-08-07 12:53 | MR ---
EXAMINATION TYPE: MR brain wo/w con DATE OF EXAM: 08/07/2024 COMPARISON: 03/11/2024, CT scan 04/28/2024 HISTORY: Malignant Neoplasm of brain TECHNIQUE: Multiplanar, multisequence images of the brain and brainstem is performed without and with IV contras t, utilizing 7 mL intravenous Gadavist . FINDINGS: A large surgical bed with resection cavity. There is persistent enhancement within the left frontal lobe which is reduced in intensity but measures 3.5 x 2.8 x 2.6 cm versus 2.7 x 3.6 x 1.8 cm . Small satellite area of enhancement reference image 76 series 801 on the medial left frontal lobe m easuring 4 mm Abnormal signal in the white matter bilaterally suggestive of remote ischemic change or residual vaso genic edema. No new mass effect. There is stable mild compression of the anterior margin of the body of the left l ateral ventricle. Mild increase in size of the lateral ventricle measuring 1.7 versus 1.5 cm may repr esent component of hydrocephalus or localized ventricular dilation. There is peripheral dural enhance ment which is stable from prior exam adjacent to the resection bed. Area of high signal on multiple s equences likely represents a component of previous hemorrhagic changes. There is a tiny nodular area of enhancement along the anterior margin of the body of the right latera l ventricle which should be monitored. A neoplastic process in the differential diagnosis. Changes of chronic sinusitis. Craniocervical junction maintained. Sella turcica are normal. IMPRESSION: 1. There is interval increase in the residual soft tissue enhancement\mass left frontal lobe which no w measures 3.5 x 2.8 x 2.6 cm versus 2.7 x 3.6 x 1.8 cm. Although, the size of the area of enhanceme nt appears increased there is reduced intensity of enhancement which could represent a component of t reatment response. Correlate clinically. 2. Stable mass effect upon the anterior margin of the lateral ventricle and the changes of vasogenic edema. 3. Mild central ventricular dilation slightly increased from prior MRI but stable from more recent CT scan. Could represent a component of isolated ventricular dilation or hydrocephalus. 4. There is a punctate area of enhancement along the anterior margin of the body of the right lateral ventricle to small to characterize. Recommend continue monitoring this region. [facility], , 08/07/2024 12:51 PM
== END | disposition home or self-care (01) ==
LOC: RADMRIMAIN 10:14
PROVIDERS: ATTEND Internal Medicine Hematology & Oncology
DX: C71.9 Malignant neoplasm of brain, unspecified
CPT/HCPCS: 70553